=== PATIENT | female | born 2000 | race African-American/Black ===

== ENCOUNTER 2023-07-14 09:16 | Outpatient (CLI) | payer OTHER, SELFPAY ==
[2023-07-14 09:37] VITALS: BP 129/80; PULSE 101
[2023-07-14 09:46] VITALS: BP 129/80; PULSE 101
[2023-07-14 10:03] LABS: Hematocrit 29.3 % (37.0-47.0); Hemoglobin 9.5 g/dL (12.0-15.0); Mean Corpuscular HGB Conc 32.4 g/dl (32-36); Mean Corpuscular Hemoglobin 27.2 pg (26-34); Mean Platelet Volume 9.5 fl (7.4-10.4); Platelet Count Result 335 k/mm3 (150-375); Red Blood Count 3.49 M/mm3 (4.2-5.4); Red Cell Distribution Width 14.8 % (11.5-14.5); White Blood Count 9.3 K/mm3 (4.5-10.0)
[2023-07-14 10:12] LABS: Alanine Aminotransferase 16 U/L (6-35); Albumin Level 3.8 g/dL (3.5-5.1); Alkaline Phosphatase 122 U/L (38-126); Anion Gap 8 mmol/L (8-16); Aspartate Amino Transferase 25 U/L (14-36); Bilirubin,Total 0.3 mg/dL (0.2-1.3); Blood Urea Nitrogen 7 mg/dL (7-17); Calcium 8.9 mg/dL (8.4-10.2); Carbon Dioxide 21 mmol/L (22-30); Chloride 104 mmol/L (98-107); Estimated Glomerular Filt Rate > 60; Glucose 81 mg/dL (65-110); Potassium 3.5 mmol/L (3.4-5.0); Sodium 133 mmol/L (137-145)
[2023-07-14] MEDS: IRON SUCROSE COMPLEX 200 MG in SODIUM CHLORIDE 0.9% IV 50 ML 120 MG IVPB (11:10)
[2023-07-14 11:23] VITALS: BP 129/80; PULSE 101
== END 2023-07-14 11:30 | disposition home or self-care (01) ==
LOC: ANHOBOP 09:31 → ANHLDR 09:34
PROVIDERS: Visit Provider Advanced Practice Midwife
DX: Z34.90 Encounter for supervision of normal pregnancy, unspecified, unspecified trimester (principal); Z3A.00 Weeks of gestation of pregnancy not specified
CPT/HCPCS: 36415; 59025; 80053; 85027; 99199; J1756

== ENCOUNTER 2023-08-04 06:41 | Inpatient (IN) | payer OTHER, SELFPAY ==
[2023-08-04] VITALS (246 sets, daily range): BP systolic 83–157; BP diastolic 43–116; PULSE 76–247; RESP 16–17; TEMP 36.4–37.4; O2SAT 77–100; BMI 29.7
--- NOTE | 2023-08-04 07:28 | WPDOBADMIT ---
Obstetrics - Admit Note Admission Note: record reviewed. No pertinent additions to the history and/or any subsequent changes in the physical findings that are not consistent with the expected course of the were found. Admit for IOL, SVE 1-2/60/-2 AROM clear, odorless fluid, anticipate vaginal delivery Additions to the history and/or subsequent changes in the physical findings follow. None.
--- NOTE | 2023-08-04 07:49 | LDADM ---
This patient, Valentin Patel, was admitted to Labor/Delivery/Recovery 104 on 08/04/23 at 06:41. Plans for labor, pain management and were discussed with patient. Patient/family oriented to hospital policies and general routines including ID bracelet, bed and alarms, visiting hours, pain management, procedures, bathroom and other care routines, personal items, smoking policy, room service/diet and guest tray routines, infant security routines, and visiting hours. Patient/Family are encouraged to report perceived risks to care and to ask questions if they do not understand what they are told or what they should do. See OBIX for further documentation.
[2023-08-04 08:03] LABS: Basophils Percent Auto 0.2 % (0.2-1.2); Eosinophils Absolute Auto 0.2 K/mm3 (0-0.3); Eosinophils Percent Auto 1.7 % (0-4.4); Hematocrit 31.4 % (37.0-47.0); Hemoglobin 10.1 g/dL (12.0-15.0); Immature Granulocyte Absolute 0.08 K/mm3 (0.00-0.031); Immature Granulocyte Percent A 0.7 % (0-0.5); Lymphocytes Absolute Auto 1.98 K/mm3 (0.9-3.2); Lymphocytes Percent Auto 18.2 % (18.3-44.2); Mean Corpuscular HGB Conc 32.2 g/dl (32-36); Mean Corpuscular Hemoglobin 27.5 pg (26-34); Mean Corpuscular Volume 85.6 fl (80-100); Mean Platelet Volume 9.6 fl (7.4-10.4); Monocytes Absolute Auto 0.8 K/mm3 (0.1-0.6); Monocytes Percent Auto 7.2 % (2.6-8.5); Neutrophils Absolute Auto 7.8 K/mm3 (1.3-6.7); Platelet Count Result 366 k/mm3 (150-375); Red Blood Count 3.67 M/mm3 (4.2-5.4); Red Cell Distribution Width 16.7 % (11.5-14.5); White Blood Count 10.9 K/mm3 (4.5-10.0)
[2023-08-04] MEDS: LACTATED RINGERS 1,000 ML 125 ML IV CONT ×4 (08:13→19:42)
[2023-08-04] MEDS: OXYTOCIN 30 UNITS/NS 500 ML 30 UNITS/500 ML BAG 6 UNITS IV CONT (08:13)
--- NOTE | 2023-08-04 09:11 | PC.NURSE ---
0730- Discussed signs and symptoms of depression with pt and family member. Discussed reaching out to care provider as well as resources that can be utilized if she begins to experience symptoms. pt and family member verbalize understanding at this time. pt denies any current thoughts of SI.
--- NOTE | 2023-08-04 10:21 | WPDANESEPPF ---
Anes - Initial Pre Proc Eval Procedure: labor epidural Date/Time: 08/04/23 10:21 Surgeon: Alli Camargo MD Pre Op Diagnosis: labor pain Pre Op Diagnosis: Induction of Labor Patient Data Age: 22 Gender: F Height: 1.6 m Weight: 76 kg Last Vital Signs Pulse 99 08/04/23 10:16 BP 111/87 08/04/23 10:16 O2 Del Method Room Air 08/04/23 07:49 Allergies Allergy/AdvReac Type Severity Reaction Status Date / Time apple Allergy Swelling Verified 08/04/23 08:43 of Lip/Tongue/Throat Laboratory Tests 08/04/23 07:41 WBC 10.9 H K/mm3 (4.5-10.0) RBC 3.67 L M/mm3 (4.2-5.4) Hgb 10.1 L g/dL (12.0-15.0) Hct 31.4 L % (37.0-47.0) MCV 85.6 fl (80-100) MCH 27.5 pg (26-34) MCHC 32.2 g/dl (32-36) RDW 16.7 H % (11.5-14.5) Plt Count 366 k/mm3 (150-375) MPV 9.6 fl (7.4-10.4) Immature Gran % (Auto) 0.7 H % (0-0.5) Neut % (Auto) 72.0 % (45.5-73.1) Lymph % (Auto) 18.2 L % (18.3-44.2) [place] % (Auto) 7.2 % (2.6-8.5) Eos % (Auto) 1.7 % (0-4.4) Baso % (Auto) 0.2 % (0.2-1.2) Lymph # (Auto) 1.98 K/mm3 (0.9-3.2) [place] # (Auto) 0.8 H K/mm3 (0.1-0.6) Eos # (Auto) 0.2 K/mm3 (0-0.3) Baso # (Auto) 0.0 K/mm3 (0.0-0.1) Abs Immat Gran (auto) 0.08 H K/mm3 (0.00-0.031) Absolute Neuts (auto) 7.8 H K/mm3 (1.3-6.7) Absolute Nucleated RBC 0.0 K/mm3 (0.0-0.012) Nucleated RBC % 0.0 % (0.0-0.2) RPR Pending Blood Type A Positive Antibody Screen Negative : gestational age (DEMETRIO 08/04/23) Patient hx anesthesia problems: none Family hx anesthesia problems: none Results Review: All pre-operative results and documents have been reviewed as part of the pre-operative evaluation. [facility] Social History Social History Smoking status: Former smoker Lack of Transportation: No Lack of Food: Never True Current Housing: I Have Housing Concerned About Future Housing: No Difficulty Paying Gas/Electric Bills: No Difficulty Paying for Meds: No Currently Unemployed: No Education: Associate Degree Difficulty w/ Childcare or Family Care: No Anes - Eval Final PreProcedure Day of Procedure 08/04/23 10:21 Heart: regular rate and rhythm Lungs: clear to auscultation Neurological: alert and oriented Last oral intake: >/= 8 hours ASA classification: II Emergent: no Anesthetic plan: proceed Anesthesia type and monitoring: regional epidural Results Review: All pre-operative results and documents have been reviewed as part of the pre-operative evaluation. Informed Consent: The patient's anesthetic plan and its attendant risks and benefits were discussed with the patient/family/POA. Questions were solicited and answers provided to the satisfaction of the patient/family/POA.
[2023-08-04 15:18] LABS: Rapid Plasma Reagin Non-Reactive (NonReactive)
[2023-08-04] MEDS: FAMOTIDINE 20 MG/2 ML VIAL IV PUSH (16:36)
[2023-08-04] MEDS: ONDANSETRON INJ 4 MG/2 ML VIAL IV PUSH (16:36)
[2023-08-04] MEDS: ACETAMINOPHEN 500 MG TABLET 1000 MG PO (16:38)
[2023-08-05] VITALS (151 sets, daily range): BP systolic 85–150; BP diastolic 36–121; PULSE 25–226; RESP 16–20; TEMP 36.2–38; O2SAT 76–100
[2023-08-05] MEDS: ACETAMINOPHEN 500 MG TABLET 1000 MG PO (00:40)
[2023-08-05] MEDS: AMPICILLIN 2 GM/NS 100 ML 2 GM/100 ML BAG IVPB (00:40)
[2023-08-05] MEDS: SODIUM CHLORIDE 0.9% IV 300 ML 600 ML I-UTERINE (00:50)
[2023-08-05] MEDS: diphenhydrAMINE HCl CAP 25 MG CAPSULE 50 MG PO (00:50)
[2023-08-05] MEDS: LACTATED RINGERS 1,000 ML 125 ML IV CONT (04:16)
[2023-08-05] MEDS: AMPICILLIN 1 GM/NS 50 ML 1 GM/50 ML BAG IVPB (04:52)
--- NOTE | 2023-08-05 05:59 | PM.IMHP ---
H&P: HPI History of Present Illness Date/Time: 08/05/23 05:59 Chief Complaint: pt arrived for elective IOL 08/06/23, Pts has been uncomplicated. FHR category 1. Patients pain has been difficult to manage and epidural is not currently providing relief. position is occiput posterior. Cervix has remain unchanged and is still 9 cm. pt is currently afebrile. Review of Systems Review of Systems: All systems reviewed & are unremarkable except as noted in HPI and below PMFSH Social History Social History Smoking status: Former smoker Lack of Transportation: No Lack of Food: Never True Current Housing: I Have Housing Concerned About Future Housing: No Difficulty Paying Gas/Electric Bills: No Difficulty Paying for Meds: No Currently Unemployed: No Education: Associate Degree Difficulty w/ Childcare or Family Care: No Meds Home Medications and Allergies Allergies Allergy/AdvReac Type Severity Reaction Status Date / Time apple Allergy Swelling Verified 08/04/23 08:43 of Lip/Tongue/Throat Vital Signs Vital Signs - 24 hr 08/04/23 07:24 08/04/23 07:45 08/04/23 08:00 Temperature Pulse Rate 113 H 102 H 105 H Respiratory Rate Blood Pressure 127/84 129/78 123/73 Pulse Oximetry Oxygen Delivery 08/04/23 08:16 08/04/23 08:30 08/04/23 08:46 Temperature Pulse Rate 97 101 H 97 Respiratory Rate Blood Pressure 124/69 132/80 122/81 Pulse Oximetry Oxygen Delivery 08/04/23 09:01 08/04/23 09:15 08/04/23 09:46 Temperature Pulse Rate 92 101 H 102 H Respiratory Rate Blood Pressure 83/58 L 117/81 128/105 H Pulse Oximetry Oxygen Delivery 08/04/23 10:00 08/04/23 10:16 08/04/23 10:23 Temperature Pulse Rate 116 H 99 Respiratory Rate Blood Pressure 135/82 111/87 Pulse Oximetry 100 Oxygen Delivery 08/04/23 10:27 08/04/23 10:28 08/04/23 10:28 Temperature Pulse Rate 140 H Respiratory Rate Blood Pressure 146/102 H Pulse Oximetry 100 99 Oxygen Delivery 08/04/23 10:28 08/04/23 10:29 08/04/23 10:29 Temperature Pulse Rate Respiratory Rate Blood Pressure Pulse Oximetry 97 89 L 87 L Oxygen Delivery 08/04/23 10:30 08/04/23 10:33 08/04/23 10:35 Temperature Pulse Rate 130 H 124 H Respiratory Rate Blood Pressure 157/95 H 142/83 H Pulse Oximetry 100 100 Oxygen Delivery 08/04/23 10:38 08/04/23 10:40 08/04/23 10:43 Temperature Pulse Rate 126 H 121 H 123 H Respiratory Rate Blood Pressure 137/87 139/88 146/88 H Pulse Oximetry 100 Oxygen Delivery 08/04/23 10:45 08/04/23 10:48 08/04/23 10:50 Temperature Pulse Rate 118 H 116 H 118 H Respiratory Rate Blood Pressure 143/86 H 132/82 136/89 Pulse Oximetry 100 100 Oxygen Delivery 08/04/23 10:53 08/04/23 10:55 08/04/23 10:58 Temperature Pulse Rate 115 H 119 H 122 H Respiratory Rate Blood Pressure 137/84 133/82 133/84 Pulse Oximetry 100 Oxygen Delivery 08/04/23 11:00 08/04/23 11:03 08/04/23 11:05 Temperature Pulse Rate 116 H 112 H 115 H Respiratory Rate Blood Pressure 131/78 128/76 137/77 Pulse Oximetry 99 100 Oxygen Delivery 08/04/23 11:08 08/04/23 11:10 08/04/23 11:13 Temperature Pulse Rate 112 H 104 H 107 H Respiratory Rate Blood Pressure 128/80 131/77 130/81 Pulse Oximetry 100 Oxygen Delivery 08/04/23 11:15 08/04/23 11:18 08/04/23 11:20 Temperature Pulse Rate 110 H 108 H 110 H Respiratory Rate Blood Pressure 126/87 129/84 128/97 H Pulse Oximetry 100 100 Oxygen Delivery 08/04/23 07:30 08/04/23 11:23 08/04/23 11:25 Temperature 36.6 C Pulse Rate 106 H 106 H Respiratory Rate Blood Pressure 133/83 132/77 Pulse Oximetry 100 Oxygen Delivery 08/04/23 11:30 08/04/23 11:35 08/04/23 11:40 Temperature Pulse Rate 109 H Respiratory Rate Bl
[2023-08-05] MEDS: AZITHROMYCIN 500 MG/NS 250 ML 500 MG/250 ML BAG 250 MG IVPB (06:16)
[2023-08-05] MEDS: TERBUTALINE SULFATE 1 MG/ML VIAL 0.25 MG SUB-Q (06:18)
[2023-08-05] MEDS: fentaNYL CITRATE INJ (*CRX) 100 MCG/2 ML VIAL IV PUSH (06:18)
[2023-08-05] MEDS: ceFAZolin 2 GM/D5W 50 ML 2 GM/50 ML BAG IVPB (06:33)
[2023-08-05] MEDS: ONDANSETRON INJ 4 MG/2 ML VIAL IV PUSH (07:00)
[2023-08-05] MEDS: fentaNYL CITRATE INJ (*CRX) 100 MCG/2 ML VIAL 25 MCG IV PUSH ×4 (08:29→09:39)
--- NOTE | 2023-08-05 08:37 | W.PM.PROC2 ---
Procedure Note - Detailed Date of Procedure 08/05/23 Pre-op Diagnosis Induction of Labor Post-op Diagnosis Same Procedure Performed Low-transverse section Surgeon Alli Camargo MD Anesthesia Spinal Findings Normal gestational maternal anatomy, average size infant, normal Apgars. Description of Procedure The patient was taken the operating room. She was prepped and draped in dorsal supine position with a leftward tilt. This was done after spinal anesthetic was applied. A low-transverse skin incision was made and carried down till of the fascia with the knife. The fascial incision was made with the knife. The fascial incision was extended laterally with Mcdermott scissors. The fascia was tented upward superiorly and inferiorly the rectus muscles were dissected off bluntly. The rectus muscles were the midline. The preperitoneal fat and peritoneum were dissected open bluntly at the superior aspect of the rectus muscles. The peritoneal incision was extended superior and inferior with good position of bladder. The uterine incision was made with a scalpel down to the level of the amniotic cavity. The amniotic cavity was entered bluntly. The was delivered. The cord was clamped and cut and the was handed off to waiting pediatric staff. Cord bloods were obtained. The placenta was removed manually. The uterus was exteriorized. The uterus was cleared of all clots, debris and membranes. The uterus was closed in 0 Vicryl running lock fashion. An imbricating over a was placed along the incision line as well. The uterus was returned to the abdomen. The gutters were cleared of all clots and debris. The fascia was closed with 0 Vicryl running fashion. The subcutaneous tissue was irrigated pinpoint bleeders were cauterized. The skin was closed with subcuticular absorbable bridger. The skin incision line was covered with glue. The patient tolerated the procedure well. She has taken recovery room in stable condition. Sponge lap and needle counts were correct x2. Urine Output -200.0 Complications No immediate complications Condition Stable Disposition PACU
--- NOTE | 2023-08-05 09:11 | W.PM.OBCSD ---
OB - Delivery Note Procedure Delivery date: 08/05/23 Pre-op diagnosis: Arrest of Decent and Arrest of Dilation Post-op Diagnosis: Same Induction method: AROM and Per Pitocin Protocol Delivery monitor: External FHT and External Uterine Procedure Performed: Primary Surgeon: Alli Camargo MD Anesthesia type: Spinal Description of Procedure/Findings: Normal gestational maternal anatomy, average size infant, normal Apgars.? Description of Procedure Description of Procedure: The patient was taken the operating room.? She was prepped and draped in dorsal supine position with a leftward tilt.? This was done after spinal anesthetic was applied.? A low-transverse skin incision was made and carried down till of the fascia with the knife.? The fascial incision was made with the knife.? The fascial incision was extended laterally with Mcdermott scissors.? The fascia was tented upward superiorly and inferiorly the rectus muscles were dissected off bluntly.? The rectus muscles were the midline.? The preperitoneal fat and peritoneum were dissected open bluntly at the superior aspect of the rectus muscles.? The peritoneal incision was extended superior and inferior with good position of bladder.? The uterine incision was made with a scalpel down to the level of the amniotic cavity.? The amniotic cavity was entered bluntly.? The infant was delivered.? The cord was clamped and cut and the infant was handed off to waiting pediatric staff.? Cord bloods were obtained.? The placenta was removed manually.? The uterus was exteriorized.? The uterus was cleared of all clots, debris and membranes.? The uterus was closed in 0 Vicryl running lock fashion.? An imbricating over a was placed along the incision line as well.? The uterus was returned to the abdomen.? The gutters were cleared of all clots and debris.? The fascia was closed with 0 Vicryl running fashion.? The subcutaneous tissue was irrigated pinpoint bleeders were cauterized.? The skin was closed with subcuticular absorbable bridger.? The skin incision line was covered with glue.? The patient tolerated the procedure well.? She has taken recovery room in stable condition.? Sponge lap and needle counts were correct x2.? Urine Output: -200.0 Complications: No immediate complications Condition: Stable Disposition: Floor [place] Baby Weeks of gestation at delivery: 39
[2023-08-05] MEDS: OXYTOCIN 30 UNITS/NS 500 ML 30 UNITS/500 ML BAG 125 UNITS IV CONT (09:39)
[2023-08-05] MEDS: KETOROLAC 30 MG/ML VIAL (*BKC) IV PUSH ×2 (10:25→16:23)
--- NOTE | 2023-08-05 10:46 | OBPPTRN ---
0954 Patient transferred to post room #290 via stretcher. Support person present. Oriented to unit, room, information board, rooming in, admission packet and security measures. Patient verbalizes understanding.
[2023-08-05] MEDS: HYDROcodone/acetaminophen (*CRX) 10-325 MG TABLET 1 TAB PO ×3 (13:36→20:19)
[2023-08-05] MEDS: DEXTROSE 5%/0.45% SOD CHL 1,000 ML 125 ML IV CONT (14:37)
[2023-08-05] MEDS: DOCUSATE SODIUM 100 MG CAPSULE PO (16:22)
[2023-08-06] MEDS: HYDROcodone/acetaminophen (*CRX) 10-325 MG TABLET 1 TAB PO ×5 (00:01→16:49)
[2023-08-06 00:04] VITALS: BP 129/88; PULSE 111; RESP 14; TEMP 37.6; O2SAT 99
[2023-08-06] MEDS: SIMETHICONE 80 MG TAB.CHEW PO ×6 (00:26→20:10)
[2023-08-06] MEDS: IBUPROFEN 600 MG TABLET PO ×3 (04:05→20:09)
[2023-08-06 04:44] LABS: Basophils Percent Auto 0.2 % (0.2-1.2); Eosinophils Absolute Auto 0.2 K/mm3 (0-0.3); Eosinophils Percent Auto 0.9 % (0-4.4); Hematocrit 28.8 % (37.0-47.0); Immature Granulocyte Absolute 0.08 K/mm3 (0.00-0.031); Immature Granulocyte Percent A 0.5 % (0-0.5); Lymphocytes Absolute Auto 1.78 K/mm3 (0.9-3.2); Lymphocytes Percent Auto 10.2 % (18.3-44.2); Mean Corpuscular HGB Conc 31.3 g/dl (32-36); Mean Corpuscular Hemoglobin 27.3 pg (26-34); Mean Corpuscular Volume 87.3 fl (80-100); Mean Platelet Volume 9.7 fl (7.4-10.4); Monocytes Percent Auto 5.6 % (2.6-8.5); Neutrophils Absolute Auto 14.4 K/mm3 (1.3-6.7); Neutrophils Percent Auto 82.6 % (45.5-73.1); Platelet Count Result 298 k/mm3 (150-375); Red Cell Distribution Width 17.2 % (11.5-14.5); White Blood Count 17.4 K/mm3 (4.5-10.0)
[2023-08-06 08:36] VITALS: BP 128/75; PULSE 91; RESP 16; TEMP 36.2; O2SAT 98
[2023-08-06] MEDS: MULTIVIT/MIN/PREN/FOL AC/IRON TABLET 1 TAB PO (08:36)
[2023-08-06] MEDS: POLYSACCHARIDE IRON COMPLEX 150 MG CAPSULE PO ×2 (08:36→16:45)
[2023-08-06] MEDS: DOCUSATE SODIUM 100 MG CAPSULE PO ×2 (08:36→16:46)
--- NOTE | 2023-08-06 09:24 | P.PNOB_ITS ---
OB - PN: Subj Subjective Date/time seen: 08/06/23 09:24 doing well flatus present baby doing well pain managed OB - PN: Obj Data Labs 08/06/23 03:56 Labs: Laboratory Results - last 24 hr 08/06/23 03:56 WBC 17.4 H RBC 3.30 L Hgb 9.0 L Hct 28.8 L MCV 87.3 MCH 27.3 MCHC 31.3 L RDW 17.2 H Plt Count 298 MPV 9.7 Immature Gran % (Auto) 0.5 Neut % (Auto) 82.6 H Lymph % (Auto) 10.2 L [place] % (Auto) 5.6 Eos % (Auto) 0.9 Baso % (Auto) 0.2 Lymph # (Auto) 1.78 [place] # (Auto) 1.0 H Eos # (Auto) 0.2 Baso # (Auto) 0.0 Abs Immat Gran (auto) 0.08 H Absolute Neuts (auto) 14.4 H Absolute Nucleated RBC 0.0 Nucleated RBC % 0.0 OB - PN A/P Plan day: 1 Plan: routine care Time Spent With Patient Time: Total time spent is greater than 50% in coordination of care (as documented) at patient's floor/unit and/or counseling patient: Review of Systems Review of Systems: All systems reviewed & are unremarkable except as noted in HPI and below Exam Const: General: cooperative, healthy appearing and comfortable Chest: Chest palpation & inspection: normal inspection of the chest Resp: Effort & Inspection: normal respiratory effort Cardio: Rate: regular rate Rhythm: regular rhythm GI: Other: soft Incision CDI Neuro: General: patient oriented x3 Psych: Appearance: grossly normal
--- NOTE | 2023-08-06 09:42 | WPDANLDNPN2 ---
Anes-Prog Note L&D-Neuraxial Date/Time: 08/06/23 09:42 Neuraxial medications: intrathecal PF morphine Opiod-related complaints: none Patient feedback: Patient satisfied with post-operative pain management.
--- NOTE | 2023-08-06 09:42 | WPDANLDPN2 ---
Anes-Prog Note L&D Date/Time: 08/06/23 09:42 Comfortable throughout: labor and section Neuraxial method: epidural (labor epidural, spinal for section) Epidural/Spinal procedure site: clean & non-tender Neuro status: Neuro function grossly intact. Cardiovascular status: normal Respiratory status: normal Airway patency: baseline Mental status: baseline Post-Op hydration status: normal Vital Signs: Last Vital Signs Temp 99.6 F 08/06/23 00:04 Pulse 111 H 08/06/23 00:04 Resp 14 08/06/23 00:04 BP 129/88 08/06/23 00:04 Pulse Ox 99 08/06/23 00:04 O2 Del Method Room Air 08/05/23 20:21 Pain score (VAS): 4 I/O: Intake & Output 08/05/23 08/06/23 08/06/23 23:59 07:59 15:59 Intake Total 2180 Output Total 1150 Balance 1030 Post-procedural complaints: none Patient feedback: Patient satisfied with anesthetic care.
[2023-08-06 18:55] VITALS: BP 126/86; PULSE 90; RESP 16; TEMP 36.3; O2SAT 100
[2023-08-06] MEDS: HYDROcodone/acetaminophen (*CRX) 5-325 MG TABLET 1 TAB PO ×2 (20:10→21:16)
--- NOTE | 2023-08-06 21:30 | PC.NURSE ---
Please disregard the charting for this patient that was entered in under Radha Martel RN at [id number]. The actual assessment and charting was performed by Mack Shanks RN at that time.
[2023-08-07] MEDS: SIMETHICONE 80 MG TAB.CHEW PO ×4 (03:34→15:31)
[2023-08-07] MEDS: HYDROcodone/acetaminophen (*CRX) 5-325 MG TABLET 1 TAB PO ×2 (03:34→11:16)
[2023-08-07] MEDS: IBUPROFEN 600 MG TABLET PO ×3 (03:34→19:18)
--- NOTE | 2023-08-07 07:55 | PM.OBPNVD ---
OB - PN: Subj Subjective Date/time seen: 08/07/23 07:55 Interval history: pp day 2 doing well flatus present incisional/back pain OB - PN: Obj Data Labs 08/06/23 03:56 OB - PN A/P Plan day: 2 Time Spent With Patient Time: Total time spent is greater than 50% in coordination of care (as documented) at patient's floor/unit and/or counseling patient: Review of Systems Review of Systems: All systems reviewed & are unremarkable except as noted in HPI and below Exam Const: General: cooperative and healthy appearing Resp: Effort & Inspection: normal respiratory effort Cardio: Rate: regular rate Rhythm: regular rhythm GI: Other: incision CDI Skin: General skin exam: normal color Neuro: General: patient oriented x3 Extrem: Right lower extremity: normal to inspection Left lower extremity: normal to inspection Psych: Appearance: grossly normal
[2023-08-07] MEDS: POLYSACCHARIDE IRON COMPLEX 150 MG CAPSULE PO ×2 (08:13→15:31)
[2023-08-07] MEDS: MULTIVIT/MIN/PREN/FOL AC/IRON TABLET 1 TAB PO (08:14)
[2023-08-07] MEDS: HYDROcodone/acetaminophen (*CRX) 10-325 MG TABLET 1 TAB PO ×4 (08:14→22:50)
[2023-08-07] MEDS: DOCUSATE SODIUM 100 MG CAPSULE PO ×2 (08:14→15:31)
[2023-08-07 08:15] VITALS: BP 138/82; PULSE 80; RESP 16; TEMP 36.3; O2SAT 100
--- NOTE | 2023-08-07 13:08 | PC.NURSE ---
[id number] Introductions were made, then consulted with patient to assess needs related to . Mother led the conversation with her?plans to feed?her infant, the?experience so far as a previous Primary RN initiated the nipple shield, pumping and decisions made to supplement infant with formula bottle feeding. Mother works well with her infant with encouragement and education. Encouraged understanding of the benefits of skin to skin (demonstrating unwrapping infant and placing upright on her chest), stimulating with massage touch, changing positions to encourage wakefulness, how to watch for early feeding cues, responsive feeding, feeding on demand (aiming for 8-12 times in 24 hours, about every 2-3 hours), milk production, building/maintaining a milk supply, duration of feeding, signs of adequate intake/output and how to record on the feeding sheet. Reviewed positioning and ear, shoulder, hip alignment, supporting the breast to facilitate a deep latch, asymmetrical latch (off-center), leading with the chin with a big, open, wide gape and body close to mother. Infant latched optimally to the right breast in football position, however, was unable to maintain latch. Nipple care reviewed with optimal latch and good positioning. Infant took a few sucks, then held the breast in his mouth and did not suck. Reviewed good handwashing, cleaning the nipple shield and application. Discussed with mom the nipple shield precautions, possible complications associated with the risks and benefits. Reviewed practicing with a nipple shield, then without and how to protect the milk supply and production. Instructions given on cleaning, care, usage, that there should be no pain, pumping schedule for milk production, collection, and storage of human milk. Mother and Auntie was encouraged to record pumping schedule on the feeding sheet. Patient was assessed for correct placement prior to meeting and was encouraged to call if there's pain with pumping. Mother was instructed to pump for comfort and nipple stretching/stimulation for adequate milk production every 3 hours (8 times in 24 hours) 1-2 times at night. Mother voiced understanding of the education shared along with mom and baby guide for additional resource information. Mother voiced understanding of skin to skin, stimulating with massage touch, responsive feedings, hand expressed colostrum, talking to infant to encourage if it has been 2 -2.5 hours since the start of the last , to call if does not latch, or if there is discomfort with . Circumcision care was demonstrated and discussed with mother and Auntie . Resources provided for inpatient/outpatient with feeding sheet, name written on the communication board and the mom/baby guide. Mother voiced understanding of information, demonstrated learning and will call if there is a request for assistance. Mother is going to eat breakfast. Reported to the Primary RN.
--- NOTE | 2023-08-07 15:48 | PC.NURSE ---
[id number] Mother called RN to the room to ask about collecting milk in a spoon. Mother is pumping. The amount of colostrum at this time expressed with a pump is enough to leave scant residue on the flange. We discussed protecting the milk supply and milk production expectations. Mother is encouraged to continue to practice her and she states he will not latch so Auntie is bottle feeding at this time. Mother has been encouraged to call for assistance if infant doesn't latch.
[2023-08-07 19:15] VITALS: BP 130/79; PULSE 86; RESP 16; TEMP 36.8; O2SAT 98
[2023-08-08] MEDS: IBUPROFEN 600 MG TABLET PO ×2 (04:27→14:30)
[2023-08-08] MEDS: HYDROcodone/acetaminophen (*CRX) 10-325 MG TABLET 1 TAB PO (04:28)
[2023-08-08] MEDS: POLYSACCHARIDE IRON COMPLEX 150 MG CAPSULE PO (07:59)
[2023-08-08] MEDS: DOCUSATE SODIUM 100 MG CAPSULE PO (07:59)
[2023-08-08] MEDS: MULTIVIT/MIN/PREN/FOL AC/IRON TABLET 1 TAB PO (07:59)
[2023-08-08] MEDS: SIMETHICONE 80 MG TAB.CHEW PO ×2 (07:59→14:31)
[2023-08-08] MEDS: HYDROcodone/acetaminophen (*CRX) 5-325 MG TABLET 1 TAB PO ×2 (08:03→14:30)
[2023-08-08 08:10] VITALS: BP 145/75; PULSE 104; RESP 16; TEMP 36.8; O2SAT 100
--- NOTE | 2023-08-08 08:29 | PM.OBPNVD ---
OB - PN: Subj Subjective Date/time seen: 08/08/23 08:29 Interval history: pp day 3 doing well flatus present incisional/back pain improving desires d/c today OB - PN: Obj Data Labs 08/06/23 03:56 OB - PN A/P Plan day: 3 Plan: discharge home Comments: follow up in 1 week for incision check Time Spent With Patient Time: Total time spent is greater than 50% in coordination of care (as documented) at patient's floor/unit and/or counseling patient: Review of Systems Review of Systems: All systems reviewed & are unremarkable except as noted in HPI and below Exam Const: General: cooperative and healthy appearing Resp: Effort & Inspection: normal respiratory effort Cardio: Rate: regular rate Rhythm: regular rhythm GI: Other: incision CDI Skin: General skin exam: normal color Neuro: General: patient oriented x3 Extrem: Right lower extremity: normal to inspection Left lower extremity: normal to inspection Psych: Appearance: grossly normal
--- NOTE | 2023-08-08 08:33 | PM.OBDSVD ---
DS: Admitting Diagnosis Discharge Date 08/08/23 Admitting Diagnosis induction of labor OB - DS: Summary OB Procedures : None OB Procedures Intrapartum: OB Procedures: : None Peripartum Data Procedures: Procedures Operation Date: 08/05/23 06:15 Actual Procedure Side Surgeon p Section Not Applicable Alli Camargo MD Time Spent with Patient Time attestation: Total time spent providing and/or coordinating discharge services: Discharge Plan Discharge Attending physician on discharge: Tony Sanchez Discharging Clinician: Tony Sanchez Patient Disposition: Home, Self-Care Activity: may shower, as tolerated and pelvic rest Diet: as tolerated Patient Instructions: Antibiotic Form Stand Alone Forms: General Discharge Information Follow-up/Referrals: Madelyn Crandall CNM [Certified Nurse Social Science Professor] - 1 Week Discharge Medications: New ibuprofen 600 mg Tablet 600 mg PO Q6H PRN (Reason: Cramping) Qty: 30 0RF Date of admission: 08/04/23 06:41 Primary Care Provider: PHYSICIAN,PROJECT CONTROLS SCHEDULER Admitting Provider: Alli Camargo Attending physician on admission: Alli Camargo Condition: Stable
== END 2023-08-08 16:02 | disposition home or self-care (01) | DRG 540 ==
LOC: ANHOB2 08-08 12:34 → ANHLDR 08-09 07:30 → ANHOB2 08-09 07:30
PROVIDERS: Admitting Provider Obstetrics & Gynecology; Referring Provider Advanced Practice Midwife; Visit Provider Obstetrics & Gynecology
PROC: 10D00Z1 Extraction of Products of Conception, Low, Open Approach (ICD-10-PCS; CPT 59514; principal; 2023-08-05 06:15)
DX: O62.2 Other uterine inertia (principal); Z37.0 Single live birth; Z87.891 Personal history of nicotine dependence; Z3A.39 39 weeks gestation of pregnancy
CPT/HCPCS: 36415; 85025; 86592; 86850; 86900; 86901; A9270; J0290; J0456; J0690; J1885; J2250; J2274; J2405; J2590; J2795; J3010; J3105; J7030; J7120

== ENCOUNTER 2023-08-09 12:35 | Emergency (ER) | payer OTHER, SELFPAY ==
[2023-08-09] VITALS (9 sets, daily range): BP systolic 144–151; BP diastolic 87–105; PULSE 84–103; RESP 16–23; TEMP 36.4; O2SAT 98–100
--- NOTE | ~2023-08-09 | CT_ITS ---
EXAMINATION: CTA chest PE abdomen pel DATE: 08/09/2023 15:06 INDICATION: leg swelling, SOB, post-op TECHNIQUE: Computed tomography angiography (CTA) of the chest was performed with 100 mL Omnipaque-350 intravenous contrast timed to evaluate the pulmonary arteries, followed by portal venous phase imagi ng of the abdomen and pelvis. Coronal maximum intensity projection 3D-reconstructions were created by the technologist. The dose-length product (DLP) was 599.00 mGy-cm. Automated exposure control and it erative reconstruction technique were employed. COMPARISON: None. FINDINGS: CHEST: Lung parenchyma and airways: Mild dependent atelectasis. Pleura: Unremarkable. Thoracic inlet, axillae and chest wall: Unremarkable. Thoracic aorta: Normal. Mediastinum: Normal. Heart and pericardium: Mildly prominent heart size. Coronary artery calcifications: Absent. Thoracic bones: No acute osseous finding. Pulmonary arteries: Study quality: Adequate. No pulmonary emboli detected. ABDOMEN/PELVIS: Liver: Normal. Biliary/Gallbladder: Gallbladder is normal. No bile duct dilation. Pancreas: No mass or duct dilation. Spleen: Normal. Adrenals:No mass. Kidneys: No suspicious mass, obstructing stone, or hydronephrosis. GI tract: No small or large bowel dilation. Normal appendix. Mesentery/Peritoneum: No ascites, mass, or free air. Retroperitoneum: No mass. Pelvis: Enlarged uterus. Posterior uterine myometrial hyperemia, no focal enhancement to s uggest retained products or extravasation. Minimal, expected volume of gas in the otherwise empty end ometrial cavity. No significant bladder flap or subfascial hematoma. Soft Tissues: Transverse lower abdominal incision, with expected post surgical change. Moderate body wall edema. Abdominopelvic bones: No acute osseous finding. IMPRESSION: No CT evidence of acute pulmonary embolus. Expected postsurgical changes, status post section. Moderate body wall edema. Otherwise, no acute intrathoracic or abdominopelvic finding detected. Reviewed, dictated and finalized at location K. NT SERVICES ASSISTANT
--- NOTE | ~2023-08-09 | XR_ITS ---
EXAMINATION: XR chest 2V DATE: 08/09/2023 13:57 INDICATION: Shortness of breath TECHNIQUE: AP and lateral views of the chest are obtained. COMPARISON: None available FINDINGS: The lungs are free of acute opacities. No pleural effusion or pneumothorax. The cardiomedia stinal silhouette is normal. The visualized bones and soft tissues are unremarkable. IMPRESSION: 1. No acute cardiopulmonary abnormality. Reviewed, dictated and finalized at location F. [employer]DER
--- NOTE | 2023-08-09 13:08 | ECG_ITS ---
Measurements Intervals [place] Rate: 86 P: 28 VT: 148 QRS: 74 QRSD: 76 T: 7 QT: 351 QTc: 421 Interpretive Statements SINUS RHYTHM NORMAL ECG NO PREVIOUS ECG AVAILABLE FOR COMPARISON Electronically Signed On 08-09-2023 19:57:42 NAIL GALVANIZER by Tres Sampson D.O.
[2023-08-09 14:18] LABS: Basophils Absolute Auto 0.1 K/mm3 (0.0-0.1); Basophils Percent Auto 0.4 % (0.2-1.2); Eosinophils Absolute Auto 0.2 K/mm3 (0-0.3); Eosinophils Percent Auto 1.3 % (0-4.4); Hematocrit 31.6 % (37.0-47.0); Hemoglobin 10.1 g/dL (12.0-15.0); Immature Granulocyte Absolute 0.04 K/mm3 (0.00-0.031); Immature Granulocyte Percent A 0.3 % (0-0.5); Lymphocytes Absolute Auto 1.34 K/mm3 (0.9-3.2); Lymphocytes Percent Auto 10.6 % (18.3-44.2); Mean Corpuscular Hemoglobin 27.4 pg (26-34); Mean Corpuscular Volume 85.9 fl (80-100); Mean Platelet Volume 9.6 fl (7.4-10.4); Monocytes Absolute Auto 0.5 K/mm3 (0.1-0.6); Monocytes Percent Auto 3.7 % (2.6-8.5); Neutrophils Absolute Auto 10.6 K/mm3 (1.3-6.7); Neutrophils Percent Auto 83.7 % (45.5-73.1); Platelet Count Result 452 k/mm3 (150-375); Red Blood Count 3.68 M/mm3 (4.2-5.4); Red Cell Distribution Width 16.5 % (11.5-14.5); White Blood Count 12.7 K/mm3 (4.5-10.0)
--- NOTE | 2023-08-09 14:25 | ED.GENADULT ---
HPI - General Adult General Chief complaint: Shortness of Breath/Dyspnea Stated complaint: Pain Time Seen by Provider: 08/09/23 13:40 History of Present Illness HPI narrative: 23-year-old female presented to the emergency department for evaluation of shortness of breath abdominal swelling and lower extremity swelling after recent delivery. Patient states she follows up with Dr. Camargo and Karley and patient had an unscheduled Monday. Patient states since then she has had increased shortness of breath and some lower extremity swelling. Patient has been wearing her compression stockings. Patient did have follow-up today and due to her having increased extremity swelling and shortness of breath they were concerned for the possibility of pulmonary embolism. Related Data Allergies Allergy/AdvReac Type Severity Reaction Status Date / Time apple Allergy Swelling Verified 08/09/23 12:58 of Lip/Tongue/Throat Review of Systems Review of Systems: All systems reviewed & are unremarkable except as noted in HPI and below PMFSH Social History Social History Smoking status: Former smoker Lack of Transportation: No Lack of Food: Never True Current Housing: I Have Housing Concerned About Future Housing: No Difficulty Paying Gas/Electric Bills: No Difficulty Paying for Meds: No Currently Unemployed: No Education: Associate Degree Difficulty w/ Childcare or Family Care: No Exam Narrative: APPEARANCE: Well appearing, no pain, no distress, well-nourished. HEAD: normocephalic, atraumatic. EYES: PERRLA/EOMI, conjunctivae clear. NOSE: Normal no drainage EARS:TMS clear with good light reflex. THROAT: Pharynx clear, no exudate. NECK: Supple. No adenopathy, no masses. RESPIRATORY: Airway patent, respirations nonlabored. Clear to auscultation bilaterally, no rales, rhonchi, wheezing. CARDIOVASCULAR: Regular rate and rhythm without murmurs rubs or gallops. ABDOMINAL: Soft, nontender, nondistended, normal bowel sounds MUSCULOSKELETAL: No posterior calf tenderness to palpation, +1 pitting edema. NEURO: Alert. Cranial nerves II through XII intact. Good gait. Good coordination SKIN: Warm, dry. Normal Color Course Course Emergency Course: 23-year-old female present to the ED for evaluation abdominal swelling shortness of breath and leg swelling. I discussed the case with Dr. Camargo and he states his primary concern was for pulmonary embolism. CTA PE chest with abdomen pelvis CT was ordered. patient is afebrile but does have a leukocytosis of 12.7. Hemoglobin is 10.1. Patient had a normal CMP but does have some elevated transaminases. Patient's BNP is 197. CTA showed no evidence of pulmonary embolism. Patient was at the results of her workup. All questions concerns were addressed and patient was well appearing at time of discharge. Patient was encouraged of close follow-up with OB Gy[facility]. Vital Signs Vital signs: Vital Signs Temperature 97.5 F L 08/09/23 12:55 Pulse Rate 90 08/09/23 12:55 Respiratory Rate 17 08/09/23 12:55 Blood Pressure 145/92 H 08/09/23 12:55 Pulse Oximetry 100 08/09/23 12:55 Oxygen Delivery Room Air 08/09/23 12:55 Temperature 97.5 F L 08/09/23 12:55 Pulse Rate 100 08/09/23 17:15 Respiratory Rate 20 08/09/23 17:15 Blood Pressure 148/87 H 08/09/23 17:15 Pulse Oximetry 98 08/09/23 17:15 Oxygen Delivery Room Air 08/09/23 13:15 Medical Decision Making Differential Diagnosis Differential Diagnosis: pneumonia, pulmonary embolism, ascites, postsurgical bleeding Vital Signs Vital Signs: Vital Signs Temperature 97.5 F L 08/09/23 12:55 Pulse Rate 90 08/09/23 12:55 Respiratory Rate 17 08/09/23 12:55 Blood Pressure 145/92 H 08/09/23 12:55 Pulse Oximetry 100 08/09/23 12:55 Oxygen Delivery Room Air 08/09/23 12:55 Temperature 97.5 F L
[2023-08-09 14:29] LABS: Alanine Aminotransferase 47 U/L (6-35); Albumin Level 3.6 g/dL (3.5-5.1); Alkaline Phosphatase 135 U/L (38-126); Anion Gap 6 mmol/L (8-16); Aspartate Amino Transferase 68 U/L (14-36); Bilirubin,Total 0.5 mg/dL (0.2-1.3); Blood Urea Nitrogen 9 mg/dL (7-17); Calcium 8.9 mg/dL (8.4-10.2); Carbon Dioxide 28 mmol/L (22-30); Chloride 103 mmol/L (98-107); Estimated CRCL calculation 123 ml/min; Estimated Glomerular Filt Rate > 60; Glucose 79 mg/dL (65-110); Potassium 3.5 mmol/L (3.4-5.0); Sodium 137 mmol/L (137-145)
[2023-08-09 14:38] LABS: INR 0.9; NT Pro B Type Natriuretic Pept 197 pg/mL (19.9-100); Prothrombin Time 12.4 Seconds (11.1-14.7)
[2023-08-09 14:39] LABS: Partial Thromboplastin Time 30.5 SECONDS (22.3-36.8)
--- NOTE | 2023-08-09 15:16 | PC.NURSE ---
CALLED OB TO BRING PUMP OVER FOR PT TO USE.
[2023-08-09] MEDS: FUROSEMIDE INJ 40 MG/4 ML VIAL IV PUSH (17:11)
== END 2023-08-09 17:15 | disposition home or self-care (01) ==
PROVIDERS: Emergency Provider Emergency Medicine
DX: O12.05 Gestational edema, complicating the puerperium (principal); R06.02 Shortness of breath; Z87.891 Personal history of nicotine dependence
CPT/HCPCS: 36415; 71046; 71275; 74177; 80053; 83605; 83880; 85025; 85610; 85730; 93005; 96374; 99284; J1940; Q9967